=== PATIENT | female | born 1970 | race Caucasian/White ===

== ENCOUNTER 2022-08-07 10:31 | Day surgery (SDC) | payer BC ==
[2022-08-05 15:06] VITALS: BMI 34.5
[~2022-08-07 10:31] MED LIST: LACTATED RINGERS 1,000 ML IV SCH; LIDOCAINE 1% (10MG/ML) FOR IV START INTRADERMA PRN
[2022-08-07 10:59] VITALS: TEMP 97.5
[2022-08-07] MEDS ORDERED: LACTATED RINGERS 1,000 ML IV ONE (11:00)
[2022-08-07] MEDS ORDERED: PROPOFOL 10 MG/ML 20 ML VIAL IV ONE (11:53)
--- NOTE | 2022-08-07 12:07 | P.PCN ---
Date of Procedure: 08/07/22 Procedure(s) Performed: BRIEF HISTORY: Patient is a 51-year-old pleasant female scheduled for an elective sigmoidoscopy as a part of follow-up of large proximal rectal polyp that was noted on a recent colonoscopy in April 2022. She was noted to have a 4 cm polyp that was removed by piecemeal fashion and biopsies revealed fragmented tubulovillous adenoma. PROCEDURE PERFORMED: Flexible sigmoidoscopy with biopsy Preoperative DIAGNOSIS: .follow-up large proximal rectal polyp noted on colonoscopy in April 2020 IV sedation per Anesthesia. PROCEDURE: After informed consent was obtained, the patient, was brought into the endoscopy unit. IV sedation was administered by Anesthesia under continuous monitoring. Digital rectal examination was normal. Initially the Olympus CF-160 flexible video colonoscope was then inserted in the rectum, gradually advanced into descending colonhout any difficulty. Careful examination was performed as the scope was gradually being withdrawn. prep was excellent. Mucosa of the, descending colon, sigmoid colon, and rectum appeared normal. in the sigmoid colon there was a 7 mm polyp was removed by cold biopsy. The polypectomy site at the previous large rectal polyp in the proximal rectum had a 2-3 mm residual polyp noted which was biopsied. Retroflexion was performed in the rectum and no lesions were seen. The patient tolerated the procedure well. IMPRESSION: 2 mm residual polyp in the proximal rectum status post cold biopsy 3 mm; sigmoid polyp status post cold biopsy RECOMMENDATIONS: Findings of this examination were discussed with the patient .as well as her family. She was advised to have a repeat colonoscopy in 3 years.
[2022-08-07 12:28] VITALS: BP 109/58; PULSE 70; RESP 16
== END 2022-08-07 12:43 | disposition home or self-care (01) ==
LOC: ORWHC2ENDO 10:31
PROVIDERS: ATTEND Internal Medicine Gastroenterology
DX: D12.6 Benign neoplasm of colon, unspecified (principal); D12.5 Benign neoplasm of sigmoid colon; Z87.19 Personal history of other diseases of the digestive system
CPT/HCPCS: 88305; 45331; J2704